=== PATIENT | female | born 2000 | race African-American/Black ===

== ENCOUNTER 2021-07-18 01:07 | Emergency (ER) | payer OTHER ==
[2021-07-18 01:37] VITALS: BP 125/77; TEMP 97.6; BMI 22.3
[2021-07-18 02:14] LABS: HEMATOCRIT 27.6 % (32.4-45.2); MEAN CELL VOLUME 62.1 fl (80-96); MEAN PLT VOLUME 8.3 fl (7.5-11.1); PLATELET COUNT 492 10^3/uL (134-434); RBC 4.44 M/mm3 (3.60-5.2); RDW 20.9 % (11.6-15.6); WHITE BLOOD COUNT 5.9 K/mm3 (4.0-10.0)
[2021-07-18 02:24] VITALS: PULSE 80
[2021-07-18 04:07] LABS: ANISOCYTOSIS 2+; MACROCYTOSIS 0; OVALOCYTE 2+; PLATELET ESTIMATE INCREASED; TEAR DROP CELLS 2+
== END 2021-07-18 02:46 | disposition home or self-care (01) ==
LOC: JER 01:07
DX: R04.0 Epistaxis (principal)
CPT/HCPCS: 36415; 85025; 99283-25